=== PATIENT | male | born 1970 | race African-American/Black ===

== ENCOUNTER 2017-08-16 01:13 | Emergency (ER) | payer BC ==
[2017-08-16] MEDS ORDERED: cefTRIAXone\\ROCEPHIN 250 MG VIAL ONE (02:32)
[2017-08-16] MEDS ORDERED: Lidocaine 1% PF 5 ML VIAL ONE (02:32)
[2017-08-16] MEDS ORDERED: Azithromycin 250 MG TAB ONE (02:32)
[2017-08-18 00:33] LABS: Chlamydia by PCR Not Detected (NotDetected); GC by PCR Not Detected (NotDetected)
== END 2017-08-16 02:42 | disposition home or self-care (01) ==
LOC: ERS 01:13
DX: N34.1 Nonspecific urethritis (principal); F17.210 Nicotine dependence, cigarettes, uncomplicated
CPT/HCPCS: 87491; 87591; 96372; J0696; J2001

== ENCOUNTER 2021-03-28 18:12 | Emergency (ER) | payer BC | END 2021-03-28 19:56 | disposition home or self-care (01) | LOC: ERS 18:12 | DX: M79.661 Pain in right lower leg (principal); F17.210 Nicotine dependence, cigarettes, uncomplicated ==

== ENCOUNTER 2022-02-07 14:22 | Emergency (ER) | payer BC ==
[2022-02-07] MEDS ORDERED: predniSONE 20 MG TAB ONE (18:43)
== END 2022-02-07 18:44 | disposition home or self-care (01) ==
LOC: ERS 14:22
DX: R05.9 Cough, unspecified (principal); F17.210 Nicotine dependence, cigarettes, uncomplicated
CPT/HCPCS: 71045; J7512

== ENCOUNTER 2022-03-18 03:58 | Emergency (ER) | payer BC ==
[2022-03-18] MEDS ORDERED: Ketorolac Tromethamine 30 MG/ML VIAL ONE (04:24)
[2022-03-18 05:14] LABS: Bilirubin Negative (Negative); Blood, Urine Negative (Negative); Clarity Clear (Clear); Glucose, Urine (Dipstick) Normal (Negative); Ketone, Urine Negative (Negative); Leukocyte Negative Leu/uL (Negative); Nitrite Negative (Negative); Protein, Urine (Dipstick) Negative (Neg-Trace); Specific Gravity, Urine 1.023 (1.002-1.036); Urobilinogen Normal mg/dL (Less than 2)
== END 2022-03-18 06:16 | disposition home or self-care (01) ==
LOC: ERS 03:58
DX: M54.50 Low back pain, unspecified (principal); R50.9 Fever, unspecified; F17.210 Nicotine dependence, cigarettes, uncomplicated
CPT/HCPCS: 81003; 96372; 99283; J1885

== ENCOUNTER 2022-06-13 11:27 | Outpatient (CLI) | payer BC | END 2022-06-13 11:28 | disposition home or self-care (01) | LOC: BICRAD 11:27 | PROVIDERS: ATTEND Family Medicine | DX: M54.42 Lumbago with sciatica, left side (principal); M54.10 Radiculopathy, site unspecified; M25.552 Pain in left hip; M47.816 Spondylosis without myelopathy or radiculopathy, lumbar region | CPT/HCPCS: 72100; 72170 ==